=== PATIENT | female | born 1970 | race Hispanic/Latino ===

== ENCOUNTER 2023-12-05 13:39 | Emergency (ER) | payer OTHER ==
[~2023-12-05] VITALS: Ht 149.9 cm; Wt 52.2 kg
[2023-12-05 13:39] VITALS: BP 136/87; PULSE 95; RESP 18; TEMP 98.5; O2SAT 97
[2023-12-05] MEDS ORDERED: ZOFRAN ODT ONE (14:08)
[2023-12-05] MEDS: ZOFRAN ODT SL PRN (14:12)
[2023-12-05 14:51] VITALS: BP 152/89; PULSE 98; RESP 18; TEMP 98.5; O2SAT 97
[2023-12-05] MEDS ORDERED: ONDA-226 PO (14:59)
== END 2023-12-05 15:01 | disposition home or self-care (01) ==
LOC: ER 13:39
DX: B34.9 Viral infection, unspecified (principal); R11.2 Nausea with vomiting, unspecified; E11.9 Type 2 diabetes mellitus without complications; E78.00 Pure hypercholesterolemia, unspecified; I10 Essential (primary) hypertension; Z90.49 Acquired absence of other specified parts of digestive tract; Z20.822 Contact with and (suspected) exposure to COVID-19
CPT/HCPCS: 82948; 87426; 99283